=== PATIENT | female | born 1990 | race American Indian/Alaskan Native ===

== ENCOUNTER 2018-04-08 19:34 | Emergency (ER) | payer OTHER ==
[2018-04-08] MEDS ORDERED: ZOFRAN ODT PO ONE (20:10)
[2018-04-08] MEDS ORDERED: NACL 0.9% 1000 ML 1,000 ML IV ONE ×2 (20:11→20:34)
[2018-04-08] MEDS ORDERED: ZOFRAN ODT ONE (20:11)
[2018-04-08] MEDS ORDERED: ZOFRAN IV ONE (20:34)
[2018-04-08] MEDS ORDERED: MORPHINE IV ONE (20:34)
[2018-04-08 20:59] LABS: Hematocrit 43.9 % (30.3-42.9); Hemoglobin 14.4 gm/dl (10.1-14.3); Mean Corpuscular HGB Conc 33 % (30-34); Mean Corpuscular Hemoglobin 30 pg (28-32); Mean Corpuscular Volume 91 fl (79-97); Platelet Count 248 K/mm3 (140-440); Red Blood Count 4.84 M/mm3 (3.65-5.03); Red Cell Distribution Width 13.2 % (13.2-15.2)
--- NOTE | 2018-04-08 21:03 | Emergency Department Report ---
ED Abdominal Pain HPI - General Chief Complaint: Nausea/Vomiting/Diarrhea Stated Complaint: DIZZY N&V Time Seen by Provider: 04/08/18 20:28 Source: patient Mode of arrival: Ambulatory Limitations: No Limitations - History of Present Illness Initial Comments: This is a 28-year-old female nontoxic, well nourished in appearance, no acute signs of distress presents to the ED with c/o of nausea and vomiting and abdominal pain 1 day. Patient describes vomiting as food content and yellow gastric acid. Patient describes abdominal pain as cramping and aching with level of 3/10 diffuse but worse on the right upper and lower abdomen. Patient denies chest pain, short of breath, fever, chills, headache, stiff neck, numbness or tingling. Patient denies any diarrhea or constipation. Patient denies any recent travels. Patient denies any allergies or PMH. MD Complaint: abdominal pain -: days(s) (1) Location: diffuse, RUQ, RLQ Radiation: none Migration to: no migration Severity: mild Severity scale (0 -10): 3 Quality: cramping, aching Consistency: constant Improves With: nothing Worsens With: nothing Associated Symptoms: nausea, vomiting. denies: diarrhea, fever, chills, constipation, dysuria, hematemesis, hematochezia, melena, hematuria, anorexia, syncope - Related Data Previous Rx's Medication Instructions Recorded Last Taken Type Ciprofloxacin HCl [Ciprofloxacin 500 mg PO Q12H #14 tab 05/24/15 Unknown Rx TAB] Acetaminophen/Codeine [Tylenol #3] 1 tab PO Q6H PRN #15 tab 10/21/15 Unknown Rx Sulfamethoxazole/Trimethoprim 1 each PO BID #14 tablet 10/21/15 Unknown Rx [Bactrim DS TAB] Acetaminophen/Codeine [Tylenol 1 tab PO Q6H PRN #12 tab 04/08/18 Unknown Rx /Codeine # 3 tab] Ibuprofen [Motrin] 600 mg PO Q8H PRN #30 tablet 04/08/18 Unknown Rx Ondansetron [Zofran Odt] 4 mg PO Q8HR PRN #20 tab.rapdis 04/08/18 Unknown Rx Allergies Allergy/AdvReac Type Severity Reaction Status Date / Time No Known Allergies Allergy Verified 05/24/15 16:57 ED Review of Systems ROS: Stated complaint: DIZZY N&V Other details as noted in HPI Constitutional: denies: chills, fever Eyes: denies: eye pain, eye discharge, vision change ENT: denies: ear pain, throat pain Respiratory: denies: cough, shortness of breath, wheezing Cardiovascular: denies: chest pain, palpitations Endocrine: no symptoms reported Gastrointestinal: abdominal pain, nausea, vomiting. denies: diarrhea Genitourinary: denies: urgency, dysuria, discharge Musculoskeletal: denies: back pain, joint swelling, arthralgia Skin: denies: rash, lesions Neurological: denies: headache, weakness, paresthesias Psychiatric: denies: anxiety, depression Hematological/Lymphatic: denies: easy bleeding, easy bruising ED Past Medical Hx - Past Medical History Previous Medical History?: No - Surgical History Past Surgical History?: No - Social History Smoking Status: Never Smoker - Medications Home Medications: Home Medications Medication Instructions Recorded Confirmed Last Taken Type Ciprofloxacin HCl [Ciprofloxacin 500 mg PO Q12H #14 tab 05/24/15 Unknown Rx TAB] Acetaminophen/Codeine [Tylenol #3] 1 tab PO Q6H PRN #15 tab 10/21/15 Unknown Rx Sulfamethoxazole/Trimethoprim 1 each PO BID #14 tablet 10/21/15 Unknown Rx [Bactrim DS TAB] Acetaminophen/Codeine [Tylenol 1 tab PO Q6H PRN #12 tab 04/08/18 Unknown Rx /Codeine # 3 tab] Ibuprofen [Motrin] 600 mg PO Q8H PRN #30 tablet 04/08/18 Unknown Rx Ondansetron [Zofran Odt] 4 mg PO Q8HR PRN #20 tab.rapdis 04/08/18 Unknown Rx ED Physical Exam - General Limitations: No Limitations General appearance: alert, in no apparent distress - Head Head exam: Present: atraumatic, normocephalic - Eye Eye exam: Present: normal appearance Pupils: Present: normal accommodation - ENT ENT exam: Present: normal exam, mucous membranes moist - Neck Neck exam: Present: normal inspection, full ROM. Absent: tenderness, meningismus - Respiratory Respiratory exam: Present: normal lung sounds bilaterally. Absent: respiratory distress, wheezes, rales, rhonchi, stridor, chest wall tenderness, accessory muscle use, decreased breath sounds, prolonged expiratory - Cardiovascular Cardiovascular Exam: Present: regular rate, normal rhythm, normal heart sounds. Absent: irregular rhythm, systolic murmur, diastolic murmur, rubs, gallop - GI/Abdominal GI/Abdominal exam: Present: soft, tenderness (diffuse), normal bowel sounds. Absent: distended, guarding, rebound, rigid, diminished bowel sounds - Expanded GI/Abdominal Exam Expanded GI/Abdominal exam: Absent: psoas sign, Winston's sign, Rovsing's sign, tenderness at Mcburney's Point - Rectal Rectal exam: Present: deferred - Extremities Exam Extremities exam: Present: normal inspection, full ROM, normal capillary refill. Absent: tenderness - Back Exam Back exam: Present: normal inspection, full ROM. Absent: tenderness, CVA tenderness (R), CVA tenderness (L), muscle spasm, paraspinal tenderness, vertebral tenderness, rash noted - Neurological Exam Neurological exam: Present: alert, oriented X3, normal gait - Psychiatric Psychiatric exam: Present: normal affect, normal mood - Skin Skin exam: Present: warm, dry, intact, normal color. Absent: rash ED Course Vital Signs 04/08/18 20:09 Temperature 99 F Pulse Rate 106 H Respiratory 18 Rate Blood Pressure 134/74 O2 Sat by Pulse 99 Oximetry - Reevaluation(s) Reevaluation #1: 04/08/18 21:03 Patient is speaking in full sentences with no signs of distress noted. ED Medical Decision Making - Lab Data Result diagrams: 04/08/18 20:14 04/08/18 20:14 - Medical Decision Making This is a 28-year-old female that presents with abdominal pain with n/v. Patient is stable and was examined by me. There is slight abdominal tenderness. Negative signs of symptoms of appendicitis. Labs obtained. UA obtained. US of abdomen obtained and dictated by the radiologist. Patient is notified of the report with no questions noted by the patient. Vital signs are stable prior to discharge. PAtient received 2L of normal saline and Zofran with Morphine in the ED which patient stated symptoms has resolved and subsided. A by mouth challenge has been obtained and patient tolerated well with no nausea vomiting. Patient was notified of strict precautions of appendicitis symptoms and to return to the ED if symptoms occurs as soon as possible. Patient was also instructed to Follow-up with a primary care doctor in 3-5 days or if symptoms worsen and continue return to emergency room as soon as possible. At time of discharge, the patient does not seem toxic or ill in appearance. No acute signs of distress noted. Patient agrees to discharge treatment plan of care. No further questions noted by the patient. Critical care attestation.: If time is entered above; I have spent that time in minutes in the direct care of this critically ill patient, excluding procedure time. ED Disposition Clinical Impression: Abdominal pain Qualifiers: Abdominal location: generalized Qualified Code(s): R10.84 - Generalized abdominal pain Nausea & vomiting Qualifiers: Vomiting type: unspecified Vomiting Intractability: non-intractable Qualified Code(s): R11.2 - Nausea with vomiting, unspecified Disposition: DC- TO HOME OR SELFCARE Is pt being admited?: No Does the pt Need Aspirin: No Condition: Stable Instructions: Acute Abdominal Pain (ED), Acute Nausea and Vomiting (ED) Additional Instructions: Follow-up with a primary care doctor in 3-5 days or if symptoms worsen and continue return to emergency room as soon as possible. Prescriptions: Acetaminophen/Codeine [Tylenol /Codeine # 3 tab] 1 tab PO Q6H PRN #12 tab PRN Reason: Pain , Severe (7-10) Ibuprofen [Motrin] 600 mg PO Q8H PRN #30 tablet PRN Reason: Pain Ondansetron [Zofran Odt] 4 mg PO Q8HR PRN #20 tab.rapdis PRN Reason: Nausea Referrals: PRIMARY CARE, [Primary Care Provider] - 3-5 Days VIJAY RICE MD [Staff Physician] - 3-5 Days [facility] [Outside] - 3-5 Days [facility] [Outside] - 3-5 Days Forms: Work/School Release Form(ED)
[2018-04-08 21:08] LABS: Alanine Aminotransferase 15 units/L (7-56); Albumin 4.3 g/dL (3.9-5); BUN/Creatinine Ratio 12; Blood Urea Nitrogen 11 mg/dL (7-17); Calcium 9.2 mg/dL (8.4-10.2); Hemolysis Index 27
[2018-04-08 21:11] LABS: Basophils % (Auto) 0.3 % (0.0-1.8); Eosinophils % (Auto) 0.5 % (0.0-4.3); Lymphocytes # (Auto) 1.9 K/mm3 (1.2-5.4); Lymphocytes % (Auto) 15.3 % (13.4-35.0); Monocytes % (Auto) 4.9 % (0.0-7.3)
[2018-04-08 21:12] LABS: Eosinophils # (Auto) 0.1 K/mm3 (0.0-0.4); Monocytes # (Auto) 0.6 K/mm3 (0.0-0.8)
--- NOTE | 2018-04-08 22:42 | Cat Scan Report ---
FINAL REPORT EXAM: CT ABDOMEN PELVIS W CON HISTORY: abdominal pain TECHNIQUE: Spiral CT scanning of the abdomen and pelvis after the uneventful administration of IV contrast. Multiplanar reformations. 100 mL Omnipaque IV. PRIORS: None. FINDINGS: Abdomen: Visualized lung bases grossly unremarkable. No radiopaque gallstones. Liver without significant abnormality. Spleen without significant abnormality. Pancreas without significant abnormality. Kidneys without significant abnormality. Adrenal glands without significant abnormality. Pelvis: Multiple loops of prominent small bowel containing gas and fluid without discrete transition point. Remainder of visualized bowel grossly unremarkable, with mild diverticular change in the sigmoid colon. Appendix within normal limits. No significant free peritoneal fluid or discrete abscess. Abdominal aorta non-aneurysmal. Ring-like structure or medical records clerk in lower uterine segment. Ovoid, cystic focus in left ovary measuring approximately 1.6 x 2.7 cm. Axial skeleton grossly unremarkable. IMPRESSION: 1. Nonspecific bowel gas pattern suggesting adynamic ileus, which may be associated with nonspecific postinflammatory change, including enteritis. Correlate clinically. 2. Findings which may represent functional cystic change in the left ovary. Clinical correlation and followup pelvic ultrasound in 6-10 weeks advised to document resolution.
[2018-04-08 22:57] LABS: Bilirubin,Urine NEG (Negative); Blood,Urine MOD (Negative); Color,Urine Yellow (Yellow); Mucus,Urine FEW /HPF; Protein,Urine <15 mg/dL mg/dL (Negative); RBC,Urine < 1.0 /HPF (0.0-6.0); Urobilinogen,Urine < 2.0 mg/dL (<2.0); WBC,Urine < 1.0 /HPF (0.0-6.0)
[2018-04-08 23:11] VITALS: BP 130/89
== END 2018-04-08 23:09 | disposition home or self-care (01) ==
LOC: ED 19:34
DX: R11.2 Nausea with vomiting, unspecified (principal); R10.31 Right lower quadrant pain; R10.11 Right upper quadrant pain
CPT/HCPCS: 36415; 74177; 80053; 81001; 83690; 84703; 85025; 96361; 96374; 96375; 99284; J2270; J2405; J7030; Q9967; Q0162

== ENCOUNTER 2019-01-31 08:31 | Emergency (ER) | payer MEDICAID ==
[2019-01-31 08:49] VITALS: BP 126/81
[2019-01-31] MEDS ORDERED: ULTRAM PO ONE (09:46)
--- NOTE | 2019-01-31 09:50 | Emergency Department Report ---
ED ENT HPI - General Chief complaint: Earache Stated complaint: LFT EAR/PAIN Time Seen by Provider: 01/31/19 09:03 Source: patient Mode of arrival: Ambulatory Limitations: No Limitations - History of Present Illness MD complaint: ear pain (left) Onset/Timin -: days(s) Location: L ear Severity: moderate Severity scale (0 -10): 8 Quality: aching Consistency: constant Improves with: none Worsens with: none Associated Symptoms: tinnitus, hearing loss. denies: fever, cough, gum swelling, toothache, pain with swallowing, sore throat, discharge from ear, rhinorrhea - Related Data Previous Rx's Medication Instructions Recorded Last Taken Type Ciprofloxacin HCl [Ciprofloxacin 500 mg PO Q12H #14 tab 05/24/15 Unknown Rx TAB] Acetaminophen/Codeine [Tylenol #3] 1 tab PO Q6H PRN #15 tab 10/21/15 Unknown Rx Sulfamethoxazole/Trimethoprim 1 each PO BID #14 tablet 10/21/15 Unknown Rx [Bactrim DS TAB] Acetaminophen/Codeine [Tylenol 1 tab PO Q6H PRN #12 tab 04/08/18 Unknown Rx /Codeine # 3 tab] Ibuprofen [Motrin] 600 mg PO Q8H PRN #30 tablet 04/08/18 Unknown Rx Ondansetron [Zofran Odt] 4 mg PO Q8HR PRN #20 tab.rapdis 04/08/18 Unknown Rx Amoxicillin/Potassium Clav 1 each PO BID 10 Days #20 tablet 07/12/18 Unknown Rx [Augmentin 875-125 Tablet] Benzonatate [Tessalon Perles] 100 mg PO Q8HR PRN #30 capsule 07/12/18 Unknown Rx Fluticasone [Flonase] 1 spray NS QDAY #1 bottle 07/12/18 Unknown Rx Ibuprofen [Ibuprofen 800] 800 mg PO TID PRN #30 tablet 07/12/18 Unknown Rx Amoxicillin [Trimox CAP] 500 mg PO BID #20 capsule 01/31/19 Unknown Rx Carbamide Peroxide 6.5% [Ear Wax 10 drops OT BID #1 bottle 01/31/19 Unknown Rx Drops] Ibuprofen [Motrin 800 MG tab] 800 mg PO Q8HR PRN #20 tablet 01/31/19 Unknown Rx Allergies Allergy/AdvReac Type Severity Reaction Status Date / Time No Known Allergies Allergy Verified 05/24/15 16:57 ED Dental HPI - General Chief complaint: Earache Stated complaint: LFT EAR/PAIN Time Seen by Provider: 01/31/19 09:03 Source: patient Mode of arrival: Ambulatory Limitations: No Limitations - Related Data Previous Rx's Medication Instructions Recorded Last Taken Type Ciprofloxacin HCl [Ciprofloxacin 500 mg PO Q12H #14 tab 05/24/15 Unknown Rx TAB] Acetaminophen/Codeine [Tylenol #3] 1 tab PO Q6H PRN #15 tab 10/21/15 Unknown Rx Sulfamethoxazole/Trimethoprim 1 each PO BID #14 tablet 10/21/15 Unknown Rx [Bactrim DS TAB] Acetaminophen/Codeine [Tylenol 1 tab PO Q6H PRN #12 tab 04/08/18 Unknown Rx /Codeine # 3 tab] Ibuprofen [Motrin] 600 mg PO Q8H PRN #30 tablet 04/08/18 Unknown Rx Ondansetron [Zofran Odt] 4 mg PO Q8HR PRN #20 tab.rapdis 04/08/18 Unknown Rx Amoxicillin/Potassium Clav 1 each PO BID 10 Days #20 tablet 07/12/18 Unknown Rx [Augmentin 875-125 Tablet] Benzonatate [Tessalon Perles] 100 mg PO Q8HR PRN #30 capsule 07/12/18 Unknown Rx Fluticasone [Flonase] 1 spray NS QDAY #1 bottle 07/12/18 Unknown Rx Ibuprofen [Ibuprofen 800] 800 mg PO TID PRN #30 tablet 07/12/18 Unknown Rx Amoxicillin [Trimox CAP] 500 mg PO BID #20 capsule 01/31/19 Unknown Rx Carbamide Peroxide 6.5% [Ear Wax 10 drops OT BID #1 bottle 01/31/19 Unknown Rx Drops] Ibuprofen [Motrin 800 MG tab] 800 mg PO Q8HR PRN #20 tablet 01/31/19 Unknown Rx Allergies Allergy/AdvReac Type Severity Reaction Status Date / Time No Known Allergies Allergy Verified 05/24/15 16:57 ED Review of Systems ROS: Stated complaint: LFT EAR/PAIN Other details as noted in HPI Constitutional: denies: chills, fever ENT: ear pain (left). denies: throat pain Respiratory: denies: cough, shortness of breath, wheezing Cardiovascular: denies: chest pain, palpitations Gastrointestinal: denies: abdominal pain, nausea, diarrhea Skin: denies: rash, lesions Neurological: denies: headache, weakness, paresthesias Psychiatric: denies: anxiety, depression ED Past Medical Hx - Past Medical History Previous Medical History?: No - Surgical History Past Surgical History?: No - Social History Smoking Status: Never Smoker Substance Use Type: None - Medications Home Medications: Home Medications Medication Instructions Recorded Confirmed Last Taken Type Ciprofloxacin HCl [Ciprofloxacin 500 mg PO Q12H #14 tab 05/24/15 Unknown Rx TAB] Acetaminophen/Codeine [Tylenol #3] 1 tab PO Q6H PRN #15 tab 10/21/15 Unknown Rx Sulfamethoxazole/Trimethoprim 1 each PO BID #14 tablet 10/21/15 Unknown Rx [Bactrim DS TAB] Acetaminophen/Codeine [Tylenol 1 tab PO Q6H PRN #12 tab 04/08/18 Unknown Rx /Codeine # 3 tab] Ibuprofen [Motrin] 600 mg PO Q8H PRN #30 tablet 04/08/18 Unknown Rx Ondansetron [Zofran Odt] 4 mg PO Q8HR PRN #20 tab.rapdis 04/08/18 Unknown Rx Amoxicillin/Potassium Clav 1 each PO BID 10 Days #20 tablet 07/12/18 Unknown Rx [Augmentin 875-125 Tablet] Benzonatate [Tessalon Perles] 100 mg PO Q8HR PRN #30 capsule 07/12/18 Unknown Rx Fluticasone [Flonase] 1 spray NS QDAY #1 bottle 07/12/18 Unknown Rx Ibuprofen [Ibuprofen 800] 800 mg PO TID PRN #30 tablet 07/12/18 Unknown Rx Amoxicillin [Trimox CAP] 500 mg PO BID #20 capsule 01/31/19 Unknown Rx Carbamide Peroxide 6.5% [Ear Wax 10 drops OT BID #1 bottle 01/31/19 Unknown Rx Drops] Ibuprofen [Motrin 800 MG tab] 800 mg PO Q8HR PRN #20 tablet 01/31/19 Unknown Rx ED Physical Exam - General Limitations: No Limitations General appearance: alert, in no apparent distress - ENT ENT exam: Present: mucous membranes moist. Absent: TM's normal bilaterally (erythematous and bulging TM on left), normal external ear exam (cerumen impaction on the right) - Respiratory Respiratory exam: Present: normal lung sounds bilaterally. Absent: respiratory distress - Cardiovascular Cardiovascular Exam: Present: regular rate, normal rhythm. Absent: systolic murmur, diastolic murmur, rubs, gallop - GI/Abdominal GI/Abdominal exam: Present: soft, normal bowel sounds - Neurological Exam Neurological exam: Present: alert, oriented X3 - Psychiatric Psychiatric exam: Present: normal affect, normal mood - Skin Skin exam: Present: warm, dry, intact, normal color. Absent: rash ED Course Vital Signs 01/31/19 08:48 Temperature 98.6 F Pulse Rate 65 Respiratory 16 Rate Blood Pressure 126/81 [Left] O2 Sat by Pulse 98 Oximetry ED Medical Decision Making - Medical Decision Making Patient is stable and was examined by me. Vitals normal. Given tramadol while in the ER. Patient will be treated for otitis media of the left ear. Start amoxicillin, Tylenol or ibuprofen for pain. Start debrox for any impaction on the right ear. Discussed plan with patient. Referral to a primary care doctor for follow-up if symptoms are not improving as discussed. Discharged home in stable condition. Critical care attestation.: If time is entered above; I have spent that time in minutes in the direct care of this critically ill patient, excluding procedure time. ED Disposition Clinical Impression: Impacted cerumen of both ears Otitis media Qualifiers: Otitis media type: suppurative Chronicity: acute Laterality: left Recurrence: non-recurrent Spontaneous tympanic membrane rupture: without spontaneous rupture Qualified Code(s): H66.002 - Acute suppurative otitis media without spontaneous rupture of ear drum, left ear Disposition: DC- TO HOME OR SELFCARE Is pt being admited?: No Does the pt Need Aspirin: No Condition: Stable Instructions: Cerumen Impaction (ED), Otitis Media (ED) Additional Instructions: Give Tylenol or ibuprofen for pain every 6-8 hours. Take antibiotics as prescribed to avoid recurrence of the ear infection. Avoid high altitudes, may worsen the pain during ear infection. If symptoms do not improve within 2 to 3 days, then follow up with [facility]. Prescriptions: Carbamide Peroxide 6.5% [Ear Wax Drops] 10 drops OT BID #1 bottle Ibuprofen [Motrin 800 MG tab] 800 mg PO Q8HR PRN #20 tablet PRN Reason: Pain , Severe (7-10) Amoxicillin [Trimox CAP] 500 mg PO BID #20 capsule Referrals: [facility] [Outside] - 3-5 Days [facility] [Outside] - 3-5 Days [facility] [Outside] - 3-5 Days [facility] [Provider Group] - 3-5 Days Forms: Work/School Release Form(ED) Time of Disposition: 10:06
== END 2019-01-31 10:16 | disposition home or self-care (01) ==
LOC: ED 08:31
DX: H66.92 Otitis media, unspecified, left ear (principal); H61.21 Impacted cerumen, right ear; Z79.899 Other long term (current) drug therapy
CPT/HCPCS: 99282

== ENCOUNTER 2020-11-27 10:33 | Emergency (ER) | payer MEDICAID ==
[2020-11-27 11:27] VITALS: BP 152/84
[2020-11-27] MEDS ORDERED: predniSONE 20 MG TAB PO ONE (11:54)
[2020-11-27] MEDS ORDERED: diphenhydrAMINE 25 MG CAP PO ONE (11:54)
[2020-11-27] MEDS ORDERED: ONDANSETRON 4 MG ODT TAB PO ONE (11:59)
--- NOTE | 2020-11-27 12:00 | Emergency Department Report ---
ED Animal Bite HPI - General Chief Complaint: Skin/Abscess/Foreign Body Stated Complaint: BITE ON STOMACH Time Seen by Provider: 11/27/20 11:38 Source: patient Mode of arrival: Ambulatory Limitations: No Limitations - History of Present Illness Initial Comments: This is a 30-year-old female with no prior medical history presents the ED complaining of a red painful bump that appeared yesterday after she woke up. Patient states that she was asleep when she felt something bit her during the night on her right upper abdomen. Patient states that she thought not noted and when she went to work today she got a bit dizzy and got headaches and felt nauseous. Patient states that bite kalyn area is red and painful to touch. She denies fever/chills/shortness of breath/chest pain or any other medical complaints. Animal Control Notified: No - Related Data Previous Rx's Medication Instructions Recorded Last Taken Type Ciprofloxacin HCl [Ciprofloxacin 500 mg PO Q12H #14 tab 05/24/15 Unknown Rx TAB] Acetaminophen/Codeine [Tylenol #3] 1 tab PO Q6H PRN #15 tab 10/21/15 Unknown Rx Acetaminophen/Codeine [Tylenol 1 tab PO Q6H PRN #12 tab 04/08/18 Unknown Rx /Codeine # 3 tab] Ibuprofen [Motrin] 600 mg PO Q8H PRN #30 tablet 04/08/18 Unknown Rx Amoxicillin/Potassium Clav 1 each PO BID 10 Days #20 tablet 07/12/18 Unknown Rx [Augmentin 875-125 Tablet] Benzonatate [Tessalon Perles] 100 mg PO Q8HR PRN #30 capsule 07/12/18 Unknown Rx Fluticasone [Flonase] 1 spray NS QDAY #1 bottle 07/12/18 Unknown Rx Ibuprofen [Ibuprofen 800] 800 mg PO TID PRN #30 tablet 07/12/18 Unknown Rx Amoxicillin [Trimox CAP] 500 mg PO BID #20 capsule 01/31/19 Unknown Rx Carbamide Peroxide 6.5% [Ear Wax 10 drops OT BID #1 bottle 01/31/19 Unknown Rx Drops] Hydrocortisone/Aloe Vera 1 applic TP BID #1 cream..g. 11/27/20 Unknown Rx [Cortizone-10 1% Creme] Ibuprofen [Motrin 800 MG tab] 800 mg PO Q8HR PRN #20 tablet 11/27/20 Unknown Rx Ondansetron [Zofran ODT TAB] 4 mg PO Q8HR PRN #20 tab.rapdis 11/27/20 Unknown Rx Sulfamethoxazole/Trimethoprim 1 each PO BID #14 tablet 11/27/20 Unknown Rx [Bactrim DS TAB] Allergies Allergy/AdvReac Type Severity Reaction Status Date / Time No Known Allergies Allergy Verified 05/24/15 16:57 ED Review of Systems ROS: Stated complaint: BITE ON STOMACH Other details as noted in HPI Comment: All other systems reviewed and negative Constitutional: denies: chills, fever Eyes: denies: eye pain, eye discharge, vision change ENT: denies: ear pain, throat pain Respiratory: denies: cough, shortness of breath, wheezing Cardiovascular: denies: chest pain, palpitations Endocrine: no symptoms reported Gastrointestinal: denies: abdominal pain, nausea, diarrhea Genitourinary: denies: urgency, dysuria, discharge Musculoskeletal: denies: back pain, joint swelling, arthralgia Skin: denies: rash, lesions Neurological: denies: headache, weakness, paresthesias Psychiatric: denies: anxiety, depression Hematological/Lymphatic: denies: easy bleeding, easy bruising ED Past Medical Hx - Past Medical History Previous Medical History?: No - Surgical History Past Surgical History?: No - Social History Smoking Status: Never Smoker Substance Use Type: None - Medications Home Medications: Home Medications Medication Instructions Recorded Confirmed Last Taken Type Ciprofloxacin HCl [Ciprofloxacin 500 mg PO Q12H #14 tab 05/24/15 Unknown Rx TAB] Acetaminophen/Codeine [Tylenol #3] 1 tab PO Q6H PRN #15 tab 10/21/15 Unknown Rx Acetaminophen/Codeine [Tylenol 1 tab PO Q6H PRN #12 tab 04/08/18 Unknown Rx /Codeine # 3 tab] Ibuprofen [Motrin] 600 mg PO Q8H PRN #30 tablet 04/08/18 Unknown Rx Amoxicillin/Potassium Clav 1 each PO BID 10 Days #20 tablet 07/12/18 Unknown Rx [Augmentin 875-125 Tablet] Benzonatate [Tessalon Perles] 100 mg PO Q8HR PRN #30 capsule 07/12/18 Unknown Rx Fluticasone [Flonase] 1 spray NS QDAY #1 bottle 07/12/18 Unknown Rx Ibuprofen [Ibuprofen 800] 800 mg PO TID PRN #30 tablet 07/12/18 Unknown Rx Amoxicillin [Trimox CAP] 500 mg PO BID #20 capsule 01/31/19 Unknown Rx Carbamide Peroxide 6.5% [Ear Wax 10 drops OT BID #1 bottle 01/31/19 Unknown Rx Drops] Hydrocortisone/Aloe Vera 1 applic TP BID #1 cream..g. 11/27/20 Unknown Rx [Cortizone-10 1% Creme] Ibuprofen [Motrin 800 MG tab] 800 mg PO Q8HR PRN #20 tablet 11/27/20 Unknown Rx Ondansetron [Zofran ODT TAB] 4 mg PO Q8HR PRN #20 tab.rapdis 11/27/20 Unknown Rx Sulfamethoxazole/Trimethoprim 1 each PO BID #14 tablet 11/27/20 Unknown Rx [Bactrim DS TAB] ED Physical Exam - General Limitations: No Limitations - Neck Neck exam: Present: full ROM - Respiratory Respiratory exam: Present: normal lung sounds bilaterally - Cardiovascular Cardiovascular Exam: Present: regular rate - GI/Abdominal GI/Abdominal exam: Present: soft. Absent: distended - Extremities Exam Extremities exam: Present: normal inspection, full ROM - Neurological Exam Neurological exam: Present: alert, CN II-XII intact - Skin Skin exam: Present: warm, intact, erythema, other - Other Other exam information: Erythematous, raised lesion to the upper abdomen, mild tenderness to palpation, small 2 to 3 cm area. ED Course Vital Signs 11/27/20 11:26 Temperature 98.7 F Pulse Rate 67 Respiratory 20 Rate Blood Pressure 152/84 O2 Sat by Pulse 97 Oximetry - Reevaluation(s) Reevaluation #1: 30-year-old female who presented with upper abdominal insect bite. Vital signs are normal patient is in no acute distress patient received meds in the ED. Discussed with patient antibiotic therapy at home with some steroids for inflammation. Vital signs are normal she is in no acute distress patient has no other instructions given. Discussed follow-up with primary care physician. Discussed with patient if she has any worsening symptoms she will return to the ED. 11/27/20 12:27 Critical care attestation.: If time is entered above; I have spent that time in minutes in the direct care of this critically ill patient, excluding procedure time. ED Disposition Clinical Impression: Insect bite (nonvenomous) of abdominal wall, initial encounter Disposition: DC-01 TO HOME OR SELFCARE Is pt being admited?: No Does the pt Need Aspirin: No Condition: Stable Instructions: Insect Bite, Adult Additional Instructions: Make sure to follow up with the primary care physician as discussed. Take all your medications as you've been prescribed. If you have any worsening symptoms or develop new symptoms please return to ED immediately. Prescriptions: Sulfamethoxazole/Trimethoprim [Bactrim DS TAB] 1 each PO BID #14 tablet Hydrocortisone/Aloe Vera [Cortizone-10 1% Creme] 1 applic TP BID #1 cream..g. Ibuprofen [Motrin 800 MG tab] 800 mg PO Q8HR PRN #20 tablet PRN Reason: Pain , Severe (7-10) Ondansetron [Zofran ODT TAB] 4 mg PO Q8HR PRN #20 tab.rapdis PRN Reason: Nausea Referrals: PRIMARY CARE, [Primary Care Provider] - 3-5 Days [facility]– [place][Note 2[place] [Outside] - 3-5 Days Forms: Accompanied Note, Work/School Release Form(ED) Time of Disposition: 12:22
== END 2020-11-27 13:06 | disposition home or self-care (01) ==
LOC: ED 10:33
DX: S30.861A Insect bite (nonvenomous) of abdominal wall, initial encounter (principal); Z79.1 Long term (current) use of non-steroidal anti-inflammatories (NSAID); Z79.2 Long term (current) use of antibiotics; Z79.899 Other long term (current) drug therapy; W57.XXXA Bitten or stung by nonvenomous insect and other nonvenomous arthropods, initial encounter; Y93.89 Activity, other specified; Y92.89 Other specified places as the place of occurrence of the external cause; Y99.8 Other external cause status
CPT/HCPCS: 99282; J7512; Q0162

== ENCOUNTER 2021-08-20 02:10 | Emergency (ER) | payer MEDICAID ==
[2021-08-20] MEDS ORDERED: methylPREDNISolone Sod Succinate 125 MG/2 ML INJ IV ONE (02:23)
[2021-08-20] MEDS ORDERED: FAMOTIDINE 20 MG/2 ML INJ IV ONE (02:23)
[2021-08-20] MEDS ORDERED: diphenhydrAMINE 50 MG/ML VIAL IV ONE (02:23)
[2021-08-20] MEDS ORDERED: SODIUM CHLORIDE 0.9% 1000 ML 1,000 ML IV ONE (02:23)
--- NOTE | 2021-08-20 02:24 | Emergency Department Report ---
HPI - General Chief Complaint: Allergic Reaction PUI?: No Time Seen by Provider: 08/20/21 02:23 - HPI HPI: 31-year-old female presents to the ER today with complaints of allergic reaction. Patient states that around 11 AM yesterday she took a single dose of tramadol and then she noticed that she started to itch all over. She states that she did not think anything of it. She did not take any Benadryl. But she states that last night while sleeping, when she woke up, she noticed that her face and lips were swollen, she felt like her throat was closing and she was having difficulty breathing and was still itching. She had not taken any more of the tramadol since earlier that day. She states that the reason she was on tramadol was because she got hurt at work. She has never taken tramadol before in the past. She denies any other possible new medications or any other new foods or any potential new contacts. She denies any history of being allergic to anything in the past. She reports no wheezing, cough, extremity swelling or rash. ED Past Medical Hx - Past Medical History Previous Medical History?: No - Surgical History Past Surgical History?: No - Social History Smoking Status: Never Smoker Substance Use Type: None - Medications Home Medications: Home Medications Medication Instructions Recorded Confirmed Last Taken Type Famotidine [Pepcid] 20 mg PO BID #10 tablet 08/20/21 Unknown Rx Prednisone [predniSONE 10 mg 10 mg PO .TAPER #1 08/20/21 Unknown Rx (6-Day Pack, 21 Tabs)] diphenhydrAMINE [Benadryl CAP] 50 mg PO Q6HR PRN #30 cap 08/20/21 Unknown Rx ED Review of Systems ROS: Stated complaint: ALLERGIC REACTION/TROUBLE BREATHING Other details as noted in HPI Comment: All other systems reviewed and negative Constitutional: denies: chills, diaphoresis, fever, malaise, weakness Eyes: denies: eye pain, eye discharge, vision change ENT: other (throat closing ). denies: ear pain, throat pain, dental pain, hearing loss, epistaxis, congestion Respiratory: shortness of breath. denies: cough, orthopnea, SOB with exertion, SOB at rest, wheezing Cardiovascular: denies: chest pain, palpitations Gastrointestinal: denies: abdominal pain, nausea, diarrhea, constipation, hematemesis, melena, hematochezia Genitourinary: denies: urgency, dysuria, frequency, hematuria, discharge, abnormal menses, dyspareunia Musculoskeletal: denies: back pain, joint swelling, arthralgia Skin: pruritus. denies: rash, lesions, change in hair/nails Neurological: denies: headache, weakness, numbness, paresthesias, confusion, abnormal gait, vertigo Psychiatric: denies: anxiety, depression, auditory hallucinations, visual hallucinations, homicidal thoughts, suicidal thoughts Hematological/Lymphatic: denies: easy bleeding, easy bruising, swollen glands Physical Exam - Physical Exam Vital Signs: Vital Signs 08/20/21 02:16 Temperature 98.2 F Pulse Rate 94 H Respiratory 17 Rate Blood Pressure 155/92 [Right] O2 Sat by Pulse 100 Oximetry ED Course Vital Signs 08/20/21 02:16 Temperature 98.2 F Pulse Rate 94 H Respiratory 17 Rate Blood Pressure 155/92 [Right] O2 Sat by Pulse 100 Oximetry ED Medical Decision Making - Medical Decision Making 0642: Patient received IV Solu-Medrol, Benadryl and Pepcid. Patient has been observed for 4 hours and she has remained stable throughout stay. She is currently sleeping comfortably on the recliner. She easily arouses. Reexamination shows improvement of her facial redness and lip swelling. Itching is also improved. Repeat chest exam shows that it is clear to auscultation. Throat exam ental exam shows no swelling. Airway appears to be intact. She has no stridor on exam. Patient is well-appearing, and she is not toxic. Her vital signs have remained stable. Her gait is normal and she is neurologically intact. Recommend that patient stop the tramadol and she can list tramadol as part of allergies. She will be discharged with prescriptions for prednisone as well as Pepcid and Benadryl for her to continue to take for few more days. Patient expressed understanding agree with plan. Patient was stable at time of discharge. Critical care attestation.: If time is entered above; I have spent that time in minutes in the direct care of this critically ill patient, excluding procedure time. ED Disposition Clinical Impression: Allergic reaction Disposition: HOME / SELF CARE / HOMELESS Is pt being admited?: No Does the pt Need Aspirin: No Condition: Stable Instructions: Drug Allergy, [id number] Additional Instructions: I recommend that you no longer take the Ultram, and start listed as an allergy. Continue taking the prednisone, the Pepcid and the Benadryl as prescribed for another 5 days. Follow-up with your primary care doctor. Return to the ER if your symptoms worsens or changes in any way. Prescriptions: diphenhydrAMINE [Benadryl CAP] 50 mg PO Q6HR PRN #30 cap PRN Reason: Itching Famotidine [Pepcid] 20 mg PO BID #10 tablet Prednisone [predniSONE 10 mg (6-Day Pack, 21 Tabs)] 10 mg PO .TAPER #1 Referrals: PRIMARY CARE, [Primary Care Provider] - 3-5 Days SAMAN SANCHEZ MD [Staff Physician] - 3-5 Days Forms: Work/School Release Form(ED) Time of Disposition: 06:11 ED Physical Exam - General Limitations: No Limitations General appearance: alert, in no apparent distress - Head Head exam: Present: atraumatic, normocephalic, normal inspection - Eye Eye exam: Present: normal appearance, PERRL, EOMI Pupils: Present: normal accommodation - ENT ENT exam: Present: mucous membranes moist, other (Mild erythema noted to face, with associated mild swelling including small swelling to the lips but there is no tongue or throat swelling) - Expanded ENT Exam Expanded Mouth exam: Present: normal external inspection. Absent: drooling, trismus, muffled voice, tongue normal, tongue elevation Teeth exam: Present: normal inspection Throat exam: Positive: normal inspection - Neck Neck exam: Present: normal inspection, full ROM. Absent: meningismus - Respiratory Respiratory exam: Present: normal lung sounds bilaterally. Absent: respiratory distress, wheezes, rales, rhonchi - Cardiovascular Cardiovascular Exam: Present: regular rate, normal rhythm, normal heart sounds - GI/Abdominal GI/Abdominal exam: Present: soft. Absent: distended, tenderness, guarding, rebound - Neurological Exam Neurological exam: Present: alert, oriented X3, CN II-XII intact, normal gait - Psychiatric Psychiatric exam: Present: normal affect, normal mood - Skin Skin exam: Present: intact. Absent: rash
[2021-08-20 06:08] VITALS: BP 141/79
== END 2021-08-20 06:39 | disposition home or self-care (01) ==
LOC: ED 02:10
DX: T78.40XA Allergy, unspecified, initial encounter (principal)
CPT/HCPCS: 96361; 96374; 96375; 99282; J1200; J2930; J3490; J7030; Q0162

== ENCOUNTER 2021-09-26 20:38 | Emergency (ER) | payer MEDICAID ==
[2021-09-27] MEDS ORDERED: SODIUM CHLORIDE 0.9% 1000 ML 1,000 ML IV ONE (01:58)
[2021-09-27] MEDS ORDERED: LIDOCAINE (1%) 10 MG/1 ML VIAL 20 ML MDV INFILTRATI ONE (01:59)
[2021-09-27] MEDS ORDERED: KETOROLAC 30 MG/1 ML INJ IV ONE (01:59)
[2021-09-27] MEDS ORDERED: cefTRIAXone/NS 1 GM/50 ML 1 GM/50 ML BAG IV ONE (01:59)
--- NOTE | 2021-09-27 03:20 | Emergency Department Report ---
ED General Adult HPI - General Chief complaint: Skin/Abscess/Foreign Body Stated complaint: PAINFUL ABSCESS ON BUTTOCKS/DIZZY Time Seen by Provider: 09/27/21 01:58 Source: patient Mode of arrival: Ambulatory Limitations: No Limitations - History of Present Illness Initial comments: Patient 31-year-old female who presents for abscess to left buttocks perineal area. Denies fevers or chills there is no nausea or vomiting. Abscess present for past 3 days states intermittent drainage to manual expression. Patient does endorse 5/10 pain exacerbated by sitting pain is relieved by nothing tried. Has had abscess in general location 5 years ago. Patient denies history of diabetes, patient denies other symptoms. Severity scale (0 -10): 8 - Related Data Previous Rx's Medication Instructions Recorded Last Taken Type Famotidine [Pepcid] 20 mg PO BID #10 tablet 08/20/21 Unknown Rx Prednisone [predniSONE 10 mg 10 mg PO .TAPER #1 08/20/21 Unknown Rx (6-Day Pack, 21 Tabs)] diphenhydrAMINE [Benadryl CAP] 50 mg PO Q6HR PRN #30 cap 08/20/21 Unknown Rx cephALEXin [Keflex] 500 mg PO Q8HR 7 Days #21 cap 09/27/21 Unknown Rx traMADoL [Ultram] 50 mg PO Q6HR PRN #12 tablet 09/27/21 Unknown Rx Allergies Allergy/AdvReac Type Severity Reaction Status Date / Time No Known Allergies Allergy Verified 05/24/15 16:57 ED Review of Systems ROS: Stated complaint: PAINFUL ABSCESS ON BUTTOCKS/DIZZY Other details as noted in HPI Constitutional: denies: chills, fever Eyes: denies: eye pain, eye discharge, vision change ENT: denies: ear pain, throat pain Respiratory: no symptoms reported Cardiovascular: as per HPI Endocrine: no symptoms reported Gastrointestinal: denies: abdominal pain, nausea, diarrhea Genitourinary: denies: urgency, dysuria, discharge Musculoskeletal: denies: back pain, joint swelling, arthralgia Skin: other. denies: rash Neurological: denies: headache, weakness, paresthesias, vertigo Psychiatric: denies: anxiety, depression Hematological/Lymphatic: as per HPI ED Past Medical Hx - Social History Smoking Status: Never Smoker Substance Use Type: None - Medications Home Medications: Home Medications Medication Instructions Recorded Confirmed Last Taken Type Famotidine [Pepcid] 20 mg PO BID #10 tablet 08/20/21 Unknown Rx Prednisone [predniSONE 10 mg 10 mg PO .TAPER #1 08/20/21 Unknown Rx (6-Day Pack, 21 Tabs)] diphenhydrAMINE [Benadryl CAP] 50 mg PO Q6HR PRN #30 cap 08/20/21 Unknown Rx cephALEXin [Keflex] 500 mg PO Q8HR 7 Days #21 cap 09/27/21 Unknown Rx traMADoL [Ultram] 50 mg PO Q6HR PRN #12 tablet 09/27/21 Unknown Rx ED Physical Exam - General Limitations: No Limitations General appearance: alert, in no apparent distress - Head Head exam: Present: normocephalic, normal inspection - Eye Eye exam: Present: normal appearance, EOMI Pupils: Present: normal accommodation - ENT ENT exam: Present: mucous membranes moist - Neck Neck exam: Present: normal inspection, full ROM. Absent: tenderness - Respiratory Respiratory exam: Present: normal lung sounds bilaterally. Absent: respiratory distress, wheezes, stridor - Cardiovascular Cardiovascular Exam: Present: regular rate, normal rhythm, normal heart sounds. Absent: systolic murmur, diastolic murmur, rubs, gallop - GI/Abdominal GI/Abdominal exam: Present: soft, normal bowel sounds. Absent: distended, tenderness - Rectal Rectal exam: Present: deferred - Extremities Exam Extremities exam: Present: normal inspection, full ROM. Absent: tenderness - Back Exam Back exam: Present: normal inspection, full ROM. Absent: CVA tenderness (R), CVA tenderness (L) - Neurological Exam Neurological exam: Present: alert, oriented X3, CN II-XII intact, normal gait - Expanded Neurological Exam Expanded Patient oriented to: Present: person, place, time Speech: Present: fluid speech Best Eye Response ([place]): (4) open spontaneously Best Motor Response ([place]): (6) obeys commands Best Verbal Response ([place]): (5) oriented [place] Total: 15 - Psychiatric Psychiatric exam: Present: normal affect, normal mood - Skin Skin exam: Present: warm, dry, intact, erythema, other (Abscess left buttocks perineal area 1 x 3 cm, fluctuant, warm to touch) ED Course Vital Signs 09/26/21 09/27/21 21:54 02:11 Temperature 98.9 F Pulse Rate 98 H Respiratory 16 16 Rate Blood Pressure 141/80 O2 Sat by Pulse 100 Oximetry - I & D Left Buttocks Type of Procedure: Simple Site: left buttock perineal abscess 1x3 cm fluctuent pain to touch Blade Size: 11 I & D Procedure: betadine prep, sterile drapes applied, sterile dressing applied Progress: Left buttocks perineal abscess 1 to 3 cm site cleaned with Betadine solution. Anesthesia with 1% lidocaine via 3 cc anesthesia was achieved, incision with 11 blade scalpel loculations broken up with six-inch blunt forceps moderate purulent output site irrigated with 50 cc sterile saline, sterile dressing applied patient given wound care instructions. Verbalized understanding of same. Patient tolerated procedure with minimal distress. ED Medical Decision Making - Medical Decision Making abscess buttocks abscess for I&D, see procedure note, sterile dressing intact all bleeding is controlled patient tolerated procedure with minimal distress. Patient will be DC'd home with prescriptions. But failed patient will follow up with PCP in 2 to 3 days for wound check. Patient will return to emergency department should symptoms worsen. Patient DC'd home in stable condition at this time. Patient currently alert oriented x3 amatory with steady gait and possession of all personal belongings. Critical care attestation.: If time is entered above; I have spent that time in minutes in the direct care of this critically ill patient, excluding procedure time. ED Disposition Clinical Impression: Abscess of buttock, left Disposition: 01 HOME / SELF CARE / HOMELESS Is pt being admited?: No Does the pt Need Aspirin: No Condition: Stable Instructions: Skin Abscess, Incision and Drainage, Care After Additional Instructions: Take medications as prescribed, wound care as directed. Follow-up with your doctor in 2 to 3 days. Return to emergency department should symptoms worsen. Prescriptions: cephALEXin [Keflex] 500 mg PO Q8HR 7 Days #21 cap traMADoL [Ultram] 50 mg PO Q6HR PRN #12 tablet PRN Reason: Pain Referrals: YOVANA ALANIZ NP [Primary Care Provider] - 3-5 Days SAMAN SANCHEZ MD [Staff Physician] - 3-5 Days Forms: Work/School Release Form(ED) Time of Disposition: 04:21
[2021-09-27 05:14] VITALS: BP 122/74
== END 2021-09-27 05:13 | disposition home or self-care (01) ==
LOC: ED 20:38
DX: L02.31 Cutaneous abscess of buttock (principal)
CPT/HCPCS: 10060; 96365; 96375; 99282; J0696; J1885; J3490; J7030; 96361; Q0162

== ENCOUNTER 2021-11-08 10:03 | Emergency (ER) | payer MEDICAID ==
[2021-11-08] MEDS ORDERED: DEXAMETHASONE 4 MG TAB PO ONE (12:27)
[2021-11-08 12:51] LABS: Hematocrit 40.6 % (30.3-42.9); Hemoglobin 13.9 gm/dl (10.1-14.3); Mean Corpuscular HGB Conc 34 % (30-34); Mean Corpuscular Volume 88 fl (79-97); Platelet Count 214 K/mm3 (140-440); Red Blood Count 4.61 M/mm3 (3.65-5.03); Red Cell Distribution Width 13.1 % (13.2-15.2)
[2021-11-08 13:23] LABS: Alanine Aminotransferase 21 units/L (7-56); Albumin 4.7 g/dL (3.9-5); BUN/Creatinine Ratio 14; Blood Urea Nitrogen 11 mg/dL (7-17); Calcium 9.4 mg/dL (8.4-10.2); Hemolysis Index 3
--- NOTE | 2021-11-08 13:52 | XRay Report ---
CHEST 2 VIEWS INDICATION / CLINICAL INFORMATION: chest pain. COMPARISON: 07/12/2018 FINDINGS: SUPPORT DEVICES: None. HEART / MEDIASTINUM: No significant abnormality. LUNGS / PLEURA: No significant pulmonary or pleural abnormality. No pneumothorax. ADDITIONAL FINDINGS: No significant additional findings. IMPRESSION: 1. No acute findings. Signer Name: Kevin Crouch MD Signed: 11/08/2021 1:48 PM Workstation Name: [id number]
--- NOTE | 2021-11-08 14:01 | Emergency Department Report ---
ED Chest Pain HPI - General Chief Complaint: Chest Pain Stated Complaint: CHEST PAIN/HEADACHE/DIZZINESS Time Seen by Provider: 11/08/21 12:26 Source: patient Mode of arrival: Ambulatory Limitations: No Limitations - History of Present Illness Initial Comments: 31-year-old black female with past medical history of hypertension presents emergency department for evaluation of midsternal to left chest pain. She states that she had her initial chest pain on Thursday along with elevated blood pressure and was seen at another hospital. She states that she was started on blood pressure medication and chest pain resolved, but when she woke up this morning she had severe left chest pain with shortness of breath, nausea, headache, and dizziness. She denies diaphoresis. MD Complaint: chest pain -: Sudden, hour(s) Onset: during rest Pain Location: substernal, left chest Pain Radiation: none Severity: moderate Severity scale (0 -10): 6 Quality: aching Consistency: intermittent Worsens With: inspiration, palpation, movement re: nausea, dyspnea. denies: vomting, diaphoresis, sense of impending doom Other Symptoms: denies: cough, fever, syncope, rash, acid taste in mouth, leg swelling, palpitations, burping Aspirin use within the Past 7 Days: (0) No - Related Data On Oral Contraceptives: No Previous Rx's Medication Instructions Recorded Last Taken Type Famotidine [Pepcid] 20 mg PO BID #10 tablet 08/20/21 Unknown Rx Prednisone [predniSONE 10 mg 10 mg PO .TAPER #1 08/20/21 Unknown Rx (6-Day Pack, 21 Tabs)] diphenhydrAMINE [Benadryl CAP] 50 mg PO Q6HR PRN #30 cap 08/20/21 Unknown Rx Naproxen 500 mg PO BID PRN #30 tab 09/27/21 Unknown Rx cephALEXin [Keflex] 500 mg PO Q8HR 7 Days #21 cap 09/27/21 Unknown Rx methylPREDNISolone [Medrol 4MG 4 mg PO DAILY #1 pack 11/08/21 Unknown Rx DOSEPAK (21 tabs)] Allergies Allergy/AdvReac Type Severity Reaction Status Date / Time No Known Allergies Allergy Verified 05/24/15 16:57 Heart Score - HEART Score History: Slightly suspicious EKG: Normal Age: < 45 Risk factors: 1-2 risk factors Troponin: < normal limit HEART Score: 1 - EKG Read Time Time EKG Completed: 11:04 EKG Read Time: 11:04 - Critical Actions Critical Actions: 0-3 pts:0.9-1.7%risk of adverse cardiac event.Candidate for discharge ED Review of Systems ROS: Stated complaint: CHEST PAIN/HEADACHE/DIZZINESS Other details as noted in HPI Comment: All other systems reviewed and negative Constitutional: denies: chills, fever ENT: denies: congestion Respiratory: shortness of breath. denies: cough, SOB with exertion, SOB at rest, wheezing Cardiovascular: chest pain. denies: palpitations, dyspnea on exertion, orthopnea, edema, syncope, paroxysmal nocturnal dyspnea Gastrointestinal: nausea. denies: abdominal pain, vomiting, diarrhea, hematemesis, melena, hematochezia Genitourinary: denies: urgency, dysuria, frequency, hematuria, discharge Musculoskeletal: denies: back pain Skin: denies: rash, lesions Neurological: headache. denies: weakness ED Past Medical Hx - Social History Smoking Status: Never Smoker Substance Use Type: None - Medications Home Medications: Home Medications Medication Instructions Recorded Confirmed Last Taken Type Famotidine [Pepcid] 20 mg PO BID #10 tablet 08/20/21 Unknown Rx Prednisone [predniSONE 10 mg 10 mg PO .TAPER #1 08/20/21 Unknown Rx (6-Day Pack, 21 Tabs)] diphenhydrAMINE [Benadryl CAP] 50 mg PO Q6HR PRN #30 cap 08/20/21 Unknown Rx Naproxen 500 mg PO BID PRN #30 tab 09/27/21 Unknown Rx cephALEXin [Keflex] 500 mg PO Q8HR 7 Days #21 cap 09/27/21 Unknown Rx methylPREDNISolone [Medrol 4MG 4 mg PO DAILY #1 pack 11/08/21 Unknown Rx DOSEPAK (21 tabs)] ED Physical Exam - General Limitations: No Limitations General appearance: alert, in no apparent distress - Head Head exam: Present: atraumatic, normocephalic - Eye Eye exam: Present: normal appearance. Absent: conjunctival injection - ENT ENT exam: Absent: normal exam (Bilateral nasal mucosal edema along with bilatera l turbinate swelling), normal orophraynx (Erythema to posterior oropharynx) - Expanded ENT Exam Expanded Throat exam: Negative: tonsillar erythema, tonsillomegaly, tonsillar exudate, R peritonsillar mass, L peritonsillar mass - Neck Neck exam: Present: normal inspection. Absent: tenderness, full ROM - Respiratory Respiratory exam: Present: normal lung sounds bilaterally. Absent: respiratory distress, wheezes, rales, rhonchi, stridor, chest wall tenderness - Cardiovascular Cardiovascular Exam: Present: regular rate, normal heart sounds - GI/Abdominal GI/Abdominal exam: Present: soft, normal bowel sounds. Absent: distended, tenderness, guarding, rigid - Extremities Exam Extremities exam: Present: normal inspection, normal capillary refill. Absent: full ROM, tenderness, pedal edema, joint swelling - Back Exam Back exam: Absent: CVA tenderness (R), CVA tenderness (L), vertebral tenderness - Neurological Exam Neurological exam: Present: alert, oriented X3, normal gait - Psychiatric Psychiatric exam: Present: normal affect, normal mood - Skin Skin exam: Present: warm, dry, intact, normal color ED Course Vital Signs 11/08/21 11/08/21 10:59 14:08 Temperature 98.9 F 97.2 F L Pulse Rate 77 80 Respiratory 18 18 Rate Blood Pressure 140/91 Blood Pressure 121/78 [Right] O2 Sat by Pulse 100 97 Oximetry - Reevaluation(s) Reevaluation #1: 11/08/21 13:58 Chest pain resolved, patient states that she feels much better. ED Medical Decision Making - Lab Data Result diagrams: 11/08/21 12:40 11/08/21 12:40 - EKG Data Interpretation: no acute changes, normal EKG - Radiology Data Radiology results: report reviewed, image reviewed Chest x-ray: FINDINGS: SUPPORT DEVICES: None. HEART / MEDIASTINUM: No significant abnormality. LUNGS / PLEURA: No significant pulmonary or pleural abnormality. No pneumothorax. ADDITIONAL FINDINGS: No significant additional findings. IMPRESSION: 1. No acute findings. - Medical Decision Making 31-year-old black female with past medical history of hypertension presents emergency department for evaluation of midsternal to left chest pain. She states that she had her initial chest pain on Thursday along with elevated blood pressure and was seen at another hospital. She states that she was started on blood pressure medication and chest pain resolved, but when she woke up this morning she had severe left chest pain with shortness of breath, nausea, headache, and dizziness. She denies diaphoresis. Patient noted to have and advised to follow-up with on exam. EKG without any acute ischemic abnormalities noted, chest x-ray without any acute abnormalities noted, and troponin within normal limits. Low suspicion of ACS. Chest pain improved after medication. Patient will be treated with steroid Dosepak and advised to follow-up with cardiology as already set up by her primary care provider. She verbalized understanding of and agreement with plan of care. Critical care attestation.: If time is entered above; I have spent that time in minutes in the direct care of this critically ill patient, excluding procedure time. ED Disposition Clinical Impression: Chest wall tenderness Disposition: HOME / SELF CARE / HOMELESS Is pt being admited?: No Does the pt Need Aspirin: No Condition: Stable Instructions: Chest Wall Pain, [id number] Additional Instructions: Take medications as prescribed. Follow-up with cardiology as planned. Return to the emergency department as needed. Prescriptions: methylPREDNISolone [Medrol 4MG DOSEPAK (21 tabs)] 4 mg PO DAILY #1 pack Time of Disposition: 14:00
[2021-11-08 14:11] VITALS: BP 121/78
--- NOTE | 2021-11-08 17:23 | Electrocardiograph Report ---
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
== END 2021-11-08 14:11 | disposition home or self-care (01) ==
LOC: ED 10:03
DX: R07.9 Chest pain, unspecified (principal)
CPT/HCPCS: 36415; 71046; 80053; 84484; 84703; 85027; 93005; 99284; J8540; 99283

== ENCOUNTER 2022-01-02 02:37 | Emergency (ER) | payer MEDICAID ==
[2022-01-02 04:23] VITALS: BP 152/87
--- NOTE | 2022-01-03 13:41 | Electrocardiograph Report ---
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
== END 2022-01-02 05:00 | disposition left against medical advice (07) ==
LOC: ED 02:37
DX: R07.9 Chest pain, unspecified (principal); Z53.21 Procedure and treatment not carried out due to patient leaving prior to being seen by health care provider
CPT/HCPCS: 93005

== ENCOUNTER 2022-01-30 19:46 | Emergency (ER) | payer MEDICAID ==
[2022-01-30 19:58] VITALS: BP 142/87
--- NOTE | 2022-01-31 01:26 | XRay Report ---
CHEST 2 VIEWS INDICATION / CLINICAL INFORMATION: cp sob. COMPARISON: None available. FINDINGS: SUPPORT DEVICES: None. HEART / MEDIASTINUM: Heart size and mediastinal contour appear within normal limits. LUNGS / PLEURA: No significant pulmonary or pleural abnormality. No pneumothorax. BONES: No significant osseous abnormality. ADDITIONAL FINDINGS: No significant additional findings. IMPRESSION: 1. No active cardiopulmonary disease. Signer Name: Ki Boyd II, MD Signed: 01/31/2022 1:21 AM Workstation Name: [id number]
--- NOTE | 2022-01-31 02:18 | Emergency Department Report ---
ED General Adult HPI - General Chief complaint: Chest Pain Stated complaint: SOB/CHEST PAIN Time Seen by Provider: 01/31/22 00:42 Source: patient Mode of arrival: Ambulatory Limitations: No Limitations - History of Present Illness Initial comments: Is a 31-year-old female who presents for shortness of breath and chest pain x1 week. Patient states cough productive clear. T-max noted at home temp was 100.2 in triage today. Patient does endorse sore throat. Denies ear pain. Pain is exacerbated by coughing. Pain is relieved by nothing tried. Patient denies wheezing or stridor. Patient seen in urgent care prescribed Medrol Dosepak. - Related Data Previous Rx's Medication Instructions Recorded Last Taken Type Famotidine [Pepcid] 20 mg PO BID #10 tablet 08/20/21 Unknown Rx Prednisone [predniSONE 10 mg 10 mg PO .TAPER #1 08/20/21 Unknown Rx (6-Day Pack, 21 Tabs)] diphenhydrAMINE [Benadryl CAP] 50 mg PO Q6HR PRN #30 cap 08/20/21 Unknown Rx Naproxen 500 mg PO BID PRN #30 tab 09/27/21 Unknown Rx cephALEXin [Keflex] 500 mg PO Q8HR 7 Days #21 cap 09/27/21 Unknown Rx methylPREDNISolone [Medrol 4MG 4 mg PO DAILY #1 pack 11/08/21 Unknown Rx DOSEPAK (21 tabs)] Albuterol Mdi (or & Nicu Only) 2 puff IH QID PRN #8.5 gram 01/31/22 Unknown Rx [ProAir HFA Inhaler] Allergies Allergy/AdvReac Type Severity Reaction Status Date / Time tramadol Allergy Unknown Verified 01/02/22 04:26 ED Review of Systems ROS: Stated complaint: SOB/CHEST PAIN Other details as noted in HPI Constitutional: denies: chills, fever Eyes: as per HPI ENT: denies: ear pain, throat pain Respiratory: shortness of breath. denies: cough, wheezing Cardiovascular: chest pain. denies: palpitations, orthopnea (With cough only), syncope, paroxysmal nocturnal dyspnea Endocrine: no symptoms reported Gastrointestinal: denies: abdominal pain, nausea, vomiting, diarrhea Genitourinary: denies: urgency, dysuria, frequency, hematuria, discharge, dyspareunia Musculoskeletal: denies: back pain, joint swelling, arthralgia Skin: denies: rash, lesions Neurological: denies: headache, weakness, paresthesias Psychiatric: denies: anxiety, depression Hematological/Lymphatic: denies: easy bleeding, easy bruising ED Past Medical Hx - Social History Smoking Status: Never Smoker Substance Use Type: None - Medications Home Medications: Home Medications Medication Instructions Recorded Confirmed Last Taken Type Famotidine [Pepcid] 20 mg PO BID #10 tablet 08/20/21 Unknown Rx Prednisone [predniSONE 10 mg 10 mg PO .TAPER #1 08/20/21 Unknown Rx (6-Day Pack, 21 Tabs)] diphenhydrAMINE [Benadryl CAP] 50 mg PO Q6HR PRN #30 cap 08/20/21 Unknown Rx Naproxen 500 mg PO BID PRN #30 tab 09/27/21 Unknown Rx cephALEXin [Keflex] 500 mg PO Q8HR 7 Days #21 cap 09/27/21 Unknown Rx methylPREDNISolone [Medrol 4MG 4 mg PO DAILY #1 pack 11/08/21 Unknown Rx DOSEPAK (21 tabs)] Albuterol Mdi (or & Nicu Only) 2 puff IH QID PRN #8.5 gram 01/31/22 Unknown Rx [ProAir HFA Inhaler] ED Physical Exam - General Limitations: No Limitations General appearance: alert, in no apparent distress - Head Head exam: Present: normocephalic, normal inspection - Eye Eye exam: Present: normal appearance, PERRL, EOMI Pupils: Present: normal accommodation - ENT ENT exam: Present: normal exam, mucous membranes moist, TM's normal bilaterally, normal external ear exam - Neck Neck exam: Present: normal inspection, full ROM. Absent: tenderness, meningismus, lymphadenopathy, thyromegaly - Expanded Neck Exam Expanded Neck exam: Absent: tenderness, midline deformity, anterior neck swelling, thyroid mass, carotid bruit, tracheal deviation - Respiratory Respiratory exam: Present: normal lung sounds bilaterally. Absent: respiratory distress, wheezes, chest wall tenderness - Cardiovascular Cardiovascular Exam: Present: regular rate, normal rhythm, normal heart sounds. Absent: systolic murmur, diastolic murmur, rubs, gallop - GI/Abdominal GI/Abdominal exam: Present: soft, normal bowel sounds. Absent: distended, tenderness, guarding, rebound, rigid, bruit, hernia - Rectal Rectal exam: Present: deferred - Extremities Exam Extremities exam: Present: normal inspection, full ROM, normal capillary refill. Absent: tenderness, pedal edema - Back Exam Back exam: Present: normal inspection, full ROM. Absent: tenderness, CVA tenderness (R), CVA tenderness (L), rash noted - Neurological Exam Neurological exam: Present: alert, oriented X3, CN II-XII intact, normal gait, reflexes normal - Expanded Neurological Exam Expanded Patient oriented to: Present: person, place, time Speech: Present: fluid speech Cranial nerves: EOM's Intact: Normal, Gag Reflex: Normal, Tongue Deviation: Normal, Nystagmus: Normal Cerebellar function: Finger to Nose: Normal Motor strength exam: RUE: 5, LUE: 5, RLE: 5, LLE: 5 Best Eye Response (Nadia): (4) open spontaneously Best Motor Response (Seanor): (6) obeys commands Best Verbal Response (Seanor): (5) oriented Nadia Total: 15 - Psychiatric Psychiatric exam: Present: normal affect, normal mood - Skin Skin exam: Present: warm, dry, intact, normal color. Absent: rash ED Course Vital Signs 01/30/22 19:55 Temperature 100.2 F H Pulse Rate 82 Respiratory 18 Rate Blood Pressure 142/87 O2 Sat by Pulse 98 Oximetry ED Medical Decision Making - EKG Data Interpretation: normal EKG, LVH - Radiology Data Radiology results: report reviewed, image reviewed CHEST 2 VIEWS INDICATION / CLINICAL INFORMATION: cp sob. COMPARISON: None available. FINDINGS: SUPPORT DEVICES: None. HEART / MEDIASTINUM: Heart size and mediastinal contour appear within normal limits. LUNGS / PLEURA: No significant pulmonary or pleural abnormality. No pneumothorax. BONES: No significant osseous abnormality. ADDITIONAL FINDINGS: No significant additional findings. IMPRESSION: 1. No active cardiopulmonary disease. Signer Name: Mariama Boyd II, MD Signed: 01/31/2022 1:21 AM Workstation Name: [id number] Transcribed By: MIRTHA Dictated By: MARIAMA BOYD II, MD Electronically Authenticated By: MARIAMA BOYD II, MD Signed Date/Time: 01/31/22120 DD/ 0 TD/TT: - Medical Decision Making X-ray normal no infiltrates no opacities. There is no fever noted at this time. EKG normal sinus rhythm no ST elevated [place] interpreted by ED attending. This is likely viral syndrome. There is currently no work of breathing no respiratory distress no stridor no wheezing. Plan DC to home with prescriptions. Return to emergency department should symptoms worsen. Patient verbalized agreement and understanding of discharge plan. Patient DC'd home in stable condition at this time. Critical care attestation.: If time is entered above; I have spent that time in minutes in the direct care of this critically ill patient, excluding procedure time. ED Disposition Clinical Impression: SOB (shortness of breath), Viral syndrome Disposition: HOME / SELF CARE / HOMELESS Is pt being admited?: No Does the pt Need Aspirin: No Condition: Stable Instructions: Hand Washing, Viral Respiratory Infection Additional Instructions: Take medications as prescribed, continue prednisone and naproxen as ordered by your primary care doctor. Follow-up with your doctor in 2 to 3 days. Return to emergency department for symptoms worsen. Prescriptions: Albuterol Mdi (or & Nicu Only) [ProAir HFA Inhaler] 2 puff IH QID PRN #8.5 gram PRN Reason: Shortness Of Breath Referrals: VIJAY LATHAM MD [Staff Physician] - 3-5 Days Forms: Work/School Release Form(ED) Time of Disposition: 02:29
--- NOTE | 2022-01-31 14:09 | Electrocardiograph Report ---
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
== END 2022-01-31 02:35 | disposition home or self-care (01) ==
LOC: ED 19:46
DX: R06.02 Shortness of breath (principal); B34.9 Viral infection, unspecified; Z91.09 Other allergy status, other than to drugs and biological substances
CPT/HCPCS: 71046; 93005; 99283

== ENCOUNTER 2022-02-04 23:46 | Emergency (ER) | payer MEDICAID ==
[2022-02-05 01:07] LABS: Basophils # (Auto) 0.1 K/mm3 (0.0-0.1); Basophils % (Auto) 0.6 % (0.0-1.8); Eosinophils # (Auto) 0.1 K/mm3 (0.0-0.4); Eosinophils % (Auto) 0.5 % (0.0-4.3); Hematocrit 40.1 % (30.3-42.9); Lymphocytes # (Auto) 2.7 K/mm3 (1.2-5.4); Lymphocytes % (Auto) 23.6 % (13.4-35.0); Mean Corpuscular HGB Conc 33 % (30-34); Mean Corpuscular Volume 89 fl (79-97); Monocytes # (Auto) 0.7 K/mm3 (0.0-0.8); Platelet Count 253 K/mm3 (140-440); Red Blood Count 4.51 M/mm3 (3.65-5.03); Red Cell Distribution Width 12.9 % (13.2-15.2)
[2022-02-05 01:37] LABS: Alanine Aminotransferase 21 units/L (7-56); Albumin 4.3 g/dL (3.9-5); BUN/Creatinine Ratio 11; Blood Urea Nitrogen 10 mg/dL (7-17); Calcium 9.2 mg/dL (8.4-10.2); Hemolysis Index 1
--- NOTE | 2022-02-05 08:00 | Emergency Department Report ---
Minor Respiratory - HPI Chief Complaint: Chest Pain Stated Complaint: AUBREE, HIGH BLOOD PRESSURE Time Seen by Provider: 02/05/22 08:00 Duration: 1 Day Pain Location: Other Severity: mild Minor Respiratory: Yes Able to Tolerate Fluids, No Rhinorrhea, No Sore Throat, No Ear Pain, No Cough, No Sick Contacts, No Hemoptysis, No Chest Pain, No Shortness of Breath, No Fever Other History: 31 yo obese female came to ER last night with sob and cp; found to be tachycardic. This is in the context of her grandmother passing away earlier in the day. The grandmother is in [place] and pt updated. Per nursing and ER pt here in ER often with similar complaints. Pt has been in ER several hours at the time of LIANE exam. She was asleep in FT stretcher. Awakened and at the time of exam had no complaints. HR 80 ED Review of Systems ROS: Stated complaint: AUBREE, HIGH BLOOD PRESSURE Other details as noted in HPI Comment: All other systems reviewed and negative ED Past Medical Hx - Past Medical History Previous Medical History?: Yes Hx Hypertension: Yes Additional medical history: obese - Surgical History Past Surgical History?: No - Family History Family history: no significant - Social History Smoking Status: Never Smoker Substance Use Type: Alcohol - Medications Home Medications: Home Medications Medication Instructions Recorded Confirmed Last Taken Type Famotidine [Pepcid] 20 mg PO BID #10 tablet 08/20/21 Unknown Rx Prednisone [predniSONE 10 mg 10 mg PO .TAPER #1 08/20/21 Unknown Rx (6-Day Pack, 21 Tabs)] diphenhydrAMINE [Benadryl CAP] 50 mg PO Q6HR PRN #30 cap 08/20/21 Unknown Rx Naproxen 500 mg PO BID PRN #30 tab 09/27/21 Unknown Rx cephALEXin [Keflex] 500 mg PO Q8HR 7 Days #21 cap 09/27/21 Unknown Rx methylPREDNISolone [Medrol 4MG 4 mg PO DAILY #1 pack 11/08/21 Unknown Rx DOSEPAK (21 tabs)] Albuterol Mdi (or & Nicu Only) 2 puff IH QID PRN #8.5 gram 01/31/22 Unknown Rx [ProAir HFA Inhaler] Minor Respiratory Exam - Exam General: Vital signs noted. No distress. Alert and acting appropriately. HEENT: Yes Moist Mucous Membranes, No Pharyngeal Erythema, No Pharyngeal Exudates, No Rhinorrhea, No Conjuctival Injection, No Frontal Tenderness, No Maxillary Tenderness Ear: Neither TM Bulge, Neither TM Erythema, Neither EAC Pain, Neither EAC Discharge Neck: Yes Supple, No Adenopathy Lungs: Yes Good Air Exchange, No Wheezes, No Ronchi, No Stridor, No Cough, No Labored Respirations, No Retractions, No Use of Accessory Muscles, No Other Abnormal Lung Sounds Heart: Yes Regular, No Murmur Abdomen: Yes Normal Bowel Sounds, No Tenderness, No Peritoneal Signs Skin: No Rash, No Edema Neurologic: Alert and oriented, no deficits. Musculoskeletal: Unremarkable. ED Course Vital Signs 02/05/22 00:03 Temperature 98.6 F Pulse Rate 122 H Respiratory 20 Rate Blood Pressure 169/88 [Right] O2 Sat by Pulse 100 Oximetry - Reevaluation(s) Reevaluation #1: 02/05/22 08:21 HR 80 on provider exam ED Medical Decision Making - Lab Data Result diagrams: 02/05/22 00:45 02/05/22 00:45 - EKG Data EKG shows normal: sinus rhythm Rate: normal - EKG Data Interpretation: no acute changes - Medical Decision Making Vital Signs 02/05/22 00:03 Temperature 98.6 F Pulse Rate 122 H Respiratory 20 Rate Blood Pressure 169/88 [Right] O2 Sat by Pulse 100 Oximetry Lab Results 02/05/22 02/05/22 Range/Units 00:45 00:45 WBC 11.2 H (4.5-11.0) K/mm3 RBC 4.51 (3.65-5.03) M/mm3 Hgb 13.0 (10.1-14.3) gm/dl Hct 40.1 (30.3-42.9) % MCV 89 (79-97) fl MCH 29 (28-32) pg MCHC 33 (30-34) % RDW 12.9 L (13.2-15.2) % Plt Count 253 (140-440) K/mm3 Lymph % (Auto) 23.6 (13.4-35.0) % [place] % (Auto) 6.0 (0.0-7.3) % Eos % (Auto) 0.5 (0.0-4.3) % Baso % (Auto) 0.6 (0.0-1.8) % Lymph # (Auto) 2.7 (1.2-5.4) K/mm3 [place] # (Auto) 0.7 (0.0-0.8) K/mm3 Eos # (Auto) 0.1 (0.0-0.4) K/mm3 Baso # (Auto) 0.1 (0.0-0.1) K/mm3 Seg Neutrophils % 69.3 (40.0-70.0) % Seg Neutrophils # 7.8 H (1.8-7.7) K/mm3 Sodium 137 (137-145) mmol/L Potassium 3.6 (3.6-5.0) mmol/L Chloride 102.6 (98-107) mmol/L Carbon Dioxide 21 L (22-30) mmol/L Anion Gap 17 mmol/L BUN 10 (7-17) mg/dL Creatinine 0.9 (0.6-1.2) mg/dL Estimated GFR > 60 ml/min BUN/Creatinine Ratio 11 % Glucose 128 H (65-100) mg/dL Calcium 9.2 (8.4-10.2) mg/dL Total Bilirubin < 0.20 (0.1-1.2) mg/dL AST 15 (5-40) units/L ALT 21 (7-56) units/L Alkaline Phosphatase 49 (35-129) units/L Troponin T < 0.010 (0.00-0.029) ng/mL Total Protein 7.5 (6.3-8.2) g/dL Albumin 4.3 (3.9-5) g/dL Albumin/Globulin Ratio 1.3 % labs noted as ordered by protocol Vital Signs 02/05/22 02/05/22 00:03 09:45 Temperature 98.6 F Pulse Rate 122 H 67 Respiratory 20 18 Rate Blood Pressure 169/88 126/79 [Right] O2 Sat by Pulse 100 99 Oximetry VS noted serial 12 leads with nap pt reassured that her labs/ekg were normal and she would be d/c with pcp follow up. I told her I'd provide her additional PCP referrals. When STEPHANIE Young went to dc pt she stated she did not remember provider being in room. I went back to pt - she did recall me and we again went over her labs/ekg findings. I explained to her that her response most likely is related to grief of the yesterday. She started to cry and verbalized concerns related [place] and the related expenses. Pt dc home with dc plan of care and follow up with local PCP's. - Differential Diagnosis anxiety /grief response Critical care attestation.: If time is entered above; I have spent that time in minutes in the direct care of this critically ill patient, excluding procedure time. ED Disposition Clinical Impression: Grief Disposition: 01 HOME / SELF CARE / HOMELESS Is pt being admited?: No Does the pt Need Aspirin: No Condition: Stable Instructions: Managing Loss, Adult Additional Instructions: follow up with pcp referral below Referrals: ESEQUIEL JOHNSON MD [Primary Care Provider] - 3-5 Days Forms: Work/School Release Form(ED) Time of Disposition: 08:21
[2022-02-05 09:46] VITALS: BP 126/79
--- NOTE | 2022-02-06 10:06 | Electrocardiograph Report ---
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
== END 2022-02-05 09:46 | disposition home or self-care (01) ==
LOC: ED 23:46
DX: F43.21 Adjustment disorder with depressed mood (principal); R07.9 Chest pain, unspecified; I10 Essential (primary) hypertension
CPT/HCPCS: 36415; 80048; 80053; 84484; 85025; 93005; 99283